=== PATIENT | female | born 1965 | race Caucasian/White ===

== ENCOUNTER 2024-03-08 13:23 | Outpatient (CLI) | payer BC ==
[~2024-03-08 13:23] MED LIST: BENZ-38 PO; CYCL-1 PO; GADOTERATE MEGLUMINE 7.5 MMOL/15 ML VIAL IV ONE; IBUP-1984 PO; LEVO100C4 PO; SIMV-42 PO
[2024-03-09] MEDS ORDERED: GADOTERATE MEGLUMINE 7.5 MMOL/15 ML VIAL IV ONE (08:38)
== END 2024-03-08 23:59 | disposition home or self-care (01) ==
LOC: MRI 13:23 → MERGE 13:23 → MRI 23:59
PROVIDERS: ATTEND Nurse Practitioner Family
DX: H93.13 Tinnitus, bilateral (principal); H91.8X3 Other specified hearing loss, bilateral
CPT/HCPCS: 70553; A9575

== ENCOUNTER → 2024-03-26 | Outpatient (CLI) | payer BC ==
[~2024-03-26] MED LIST changes: -BENZ-38 PO; -GADOTERATE MEGLUMINE 7.5 MMOL/15 ML VIAL IV ONE; -IBUP-1984 PO
== END | disposition home or self-care (01) ==
LOC: RAD 12:47
PROVIDERS: ATTEND Nurse Practitioner Family
DX: J32.8 Other chronic sinusitis (principal); J34.2 Deviated nasal septum; H93.13 Tinnitus, bilateral; H91.90 Unspecified hearing loss, unspecified ear; H91.8X3 Other specified hearing loss, bilateral
CPT/HCPCS: 70486

== ENCOUNTER 2024-09-02 03:41 | Outpatient (CLI) | payer BC ==
[~2024-09-02 03:41] MED LIST changes: -LEVO100C4 PO; +LEVO100C5 PO
[2024-09-04 08:12] LABS: THIIODOTHRONINE, FREE, SERUM 2.7 pg/mL (2.0-4.4); THYROXINE (T4) 8.3 ug/dL (4.5-12.0)
== END 2024-09-02 23:59 | disposition home or self-care (01) ==
LOC: LAB 03:41
DX: E03.9 Hypothyroidism, unspecified (principal)
CPT/HCPCS: 36415; 82306; 84436; 84443; 84481

== ENCOUNTER 2024-12-14 09:01 | Outpatient (CLI) | payer BC ==
[2024-12-14 09:22] LABS: MEAN PLATELET VOLUME 8.6 FL (7.4-10.4); RED CELL DISTRIBUTION WIDTH 13.6 % (11.5-14.5)
[2024-12-14 09:39] LABS: CHOL/HDL RATIO 3.3 (0.00-4.99); CREATININE 0.71 MG/DL (0.40-0.90); LDL CHOLESTEROL 92 MG/DL (50-100); TOTAL CARBON DIOXIDE 29.5 MMOL/L (24-32); eGFR 84 ML/MIN
== END 2024-12-14 23:59 | disposition home or self-care (01) ==
LOC: RAD 09:01
PROVIDERS: ATTEND Internal Medicine Interventional Cardiology
DX: E78.5 Hyperlipidemia, unspecified (principal); R53.83 Other fatigue; R00.2 Palpitations
CPT/HCPCS: 36415; 80053; 80061; 83695; 83735; 85025

== ENCOUNTER 2025-01-07 07:55 | Outpatient (CLI) | payer BC ==
--- NOTE | 2025-01-07 09:14 | VASCULAR REPORT ---
CLINICAL HISTORY: Dizziness. TECHNIQUE: Ricketts-scale, Color and Duplex Doppler imaging of the bilateral carotid systems was performed. COMPARISON: MR MRI HEAD on DOS: 03/08/24, ULTRASOUND HEAD NECK on DOS: 05/10/19 Findings: Right Carotid system: There is mild intimal thickening present in the right carotid system. Left Carotid system: There is mild intimal thickening present in the left carotid system. The following flow velocities were obtained (cm/sec). Right Carotid System: ICA PSV: 73 cm/sec ICA PDV: 34 cm/sec ICA/CCA Ratio: 0 Left Carotid System: ICA PSV: 88 cm/sec ICA PDV: 33 cm/sec ICA/CCA Ratio: 0.9 The right and left common carotid and external carotid arteries are patent. There is antegrade flow in both vertebral arteries and external carotid arteries. IMPRESSION: LESS THAN 50% RIGHT ICA NARROWING. LESS THAN 50% LEFT ICA NARROWING. Estimation of carotid stenosis is based on velocity parameters that correlate the residual internal carotid diameter with that of the more distal vessel in accordance with the [place] Symptomatic Carotid Endarterectomy Trial (NASCET).
--- NOTE | 2025-01-07 19:04 | CARDIOLOGY REPORT ---
APPROVED REPORT EXAM: Comprehensive 2D, Doppler, and color-flow Echocardiogram. Patient Location: OUTPATIENT Blood Pressure: 121/77 mmHg Heart Rate: 50's bpm Rhythm: SINUS BRADYCARDIA Indications ARRHYTHMIA Procedural Nurse: Roney Duke MD Previous echo: NONE 2D Dimensions RVDd 3.5 cm IVSd 0.8 (0.7-1.1cm) LVDd 4.5 cm PWd 0.8 (0.7-1.1cm) IVSs 1.1 (0.8-1.2cm) LVDs 2.9 (2.5-4.0cm) PWs 1.1 (0.8-1.2cm) LVOT Diameter 1.90 (1.8-2.4cm) LVEF(%) 63.4 (>50%) FS (%) 34.2 % SV 57.7 ml M-Mode Dimensions Left Atrium(MM) 4.10 (2.5-4.0cm) Aortic Root 2.34 (2.2-3.7cm) Aortic Valve AoV Peak Turner. 123.4 cm/s AoV VTI 27.2 cm AO Peak GR. 6.1 mmHg AO Mean GR. 3 mmHg LVOT VTI 27.64 cm LVOT Peak Turner. 107.6 cm/s HAANNE (VMAX) 2.48 cm2 HANANE (VTI) 2.89 cm2 Mitral Valve MV E Velocity 65.2 cm/s MV DECEL TIME 225 ms MV A Velocity 56.7 cm/s MV PHT 72 ms E/A Ratio 1.1 MVA (PHT) 3.07 cm2 Tricuspid Valve TR P. Velocity 233 cm/s RAP ESTIMATE 10 mmHg TR Peak Gr. 22 mmHg RVSP 32 mmHg LEFT VENTRICLE Normal LV size and wall thickness. Overall systolic function is normal. LVEF is 60-65%. RIGHT VENTRICLE RV is mildly dilated with normal function. Elevated right heart pressures with an RVSP of 32 mmHg. ATRIA Left atrium is mildly dilated. AORTIC VALVE Trileaflet AV appears normal without stenosis. No insufficiency. MITRAL VALVE Mild MV annular calcification without stenosis. Trace regurgitation. TRICUSPID VALVE TV appears structurally normal with trace regurgitation. PULMONIC VALVE Normal PV without stenosis, physiologic insufficiency. GREAT VESSELS The aortic root is normal in size. PERICARDIUM Normal pericardium. No effusion. Other Information Study Quality: Adequate Conclusion Normal LV size and wall thickness. Overall systolic function is normal. LVEF is 60-65%. RV is mildly dilated with normal function. Elevated right heart pressures with an RVSP of 32 mmHg. Left atrium is mildly dilated. Trileaflet AV appears normal without stenosis. No insufficiency. Mild MV annular calcification without stenosis. Trace regurgitation. TV appears structurally normal with trace regurgitation. Normal pericardium. No effusion.
== END 2025-01-07 23:59 | disposition home or self-care (01) ==
LOC: VAS 07:55
PROVIDERS: ATTEND Internal Medicine Interventional Cardiology
DX: I37.1 Nonrheumatic pulmonary valve insufficiency (principal); R53.83 Other fatigue; E03.9 Hypothyroidism, unspecified; R00.2 Palpitations; E78.5 Hyperlipidemia, unspecified
CPT/HCPCS: 36415; 84439; 84443; 84481; 93306; 93880

== ENCOUNTER 2025-01-17 12:51 | Emergency (ER) | payer BC ==
[~2025-01-17] VITALS: Ht 152.4 cm; Wt 66.5 kg
[2025-01-17 13:15] LABS: MEAN PLATELET VOLUME 8.8 FL (7.4-10.4); RED CELL DISTRIBUTION WIDTH 13.4 % (11.5-14.5)
[2025-01-17] MEDS: adenosine 3mg/ml 2ml vial IV ONE ×2 (13:15)
--- NOTE | 2025-01-17 13:21 | ELECTROCARDIOGRAPH REPORT ---
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 Elpidio Alvarez Measurements Intervals Felt Rate: 211 P: 269 [place]: 65 QRS: -48 QRSD: 90 T: 57 QT: 260 QTc: 488 Interpretive Statements Supraventricular tachycardia Left axis deviation ST depression, probably rate related Artifact in lead(s) I,II,aVR,aVL,aVF,V1 and baseline wander in lead(s) I,II,aVR,aVL,aVF,V2,V4 Electronically Signed On 01-18-2025 7:40:[address] Elpidio Alvarez Please click the below link to view image of tracing.
[2025-01-17 13:36] LABS: CREATININE 0.89 MG/DL (0.40-0.90); TOTAL CARBON DIOXIDE 28.4 MMOL/L (24-32); eCRCL 49 ML/MIN; eGFR 65 ML/MIN
--- NOTE | 2025-01-17 13:47 | Physician Documentation ---
History of Present Illness ~ Chief Complaint: Rapid Heartbeat Stated Complaint: HIGH HEART RATE Time Seen by MD: 13:02 Primary Medical Doctor: ashleyk Mode of Arrival: POV, Ambulatory HPI 59 year old female was at home today and reports lakhwinder acute onset of palpitations and a racing heart. This happened about one month ago and she is unsure of the diagnosis. She is followed by Dr. Duke. At the time, carotid massage and valsalva maneuver stopped the episode. She denies chest pain, fevers, N/V/D. Medication Reconciliation Allergies: Coded Allergies: No Known Allergies (Unverified , 01/17/25) Scheduled Levothyroxine Sodium (Levothyroxine), PO DAILY, (Reported) Simvastatin* (Zocor*), 1 TAB PO HS, (Reported) Scheduled PRN Cyclobenzaprine* (Cyclobenzaprine*), 1 TAB PO Q8H PRN for pain Review of Systems All Other Systems at this time: Reviewed and Negative Physical Exam Vital Signs: RN Vital Signs have been reviewed: Yes, Temperature: 97.8, Source: Oral, Heart Rate: 76, Respiratory Rate: 17, BP: 122/81, Pulse Oximetry: 96, Weight: 66.500 Oxygen Flow Rate: 0 Physical Exam HEENT: PERRL, moist oral mucosa, EOMI Pulmonary: No respiratory distress Cardiac: regular tachycardia, no murmur, rub or gallop MSK: no deformity Skin: w/d/i, no rash Neuro: alert, nonfocal Psych: normal affect Progress Results/Orders Results/Orders Orders - JOVANNA ARAIZA MD Urinalysis, Cult If Indicated (01/17/25 13:03) Electrocardiogram (01/17/25 13:15) Completed Orders - JOVANNA ARAIZA MD Cbc/Diff (01/17/25 13:03) CMP (01/17/25 13:03) Adenosine Inj. (Adenocard Inj.) (01/17/25 13:05) Electrocardiogram (01/17/25 12:56) Medications Received in ER Medications (Trade) Dose Ordered Sig/Mark Route PRN Reason Start Time Stop Time Status Last Admin Dose Admin (Adenocard inj.) 12 mg ONCE ONCE IV 01/17/25 13:05 01/17/25 13:06 DC 01/17/25 13:15 12 MG Vital Signs 01/17/25 01/17/25 01/17/25 01/17/25 13:00 13:20 13:23 13:26 Temp 97.7 97.8 97.8 Pulse 184 74 76 Resp 18 18 15 17 B/P (MAP) 131/104 125/85 (98) 122/81 (95) Pulse Ox 99 96 96 O2 Flow Rate 0 0 0 Laboratory Tests Test 01/17/25 12:58 White Blood Count 6.5 Red Blood Count 4.94 Hemoglobin 15.2 Hematocrit 45.9 H Mean Corpuscular Volume 93.0 Mean Corpuscular Hemoglobin 30.9 Mean Corpuscular Hemoglobin Concent 33.2 Red Cell Distribution Width 13.4 Platelet Count 246 Mean Platelet Volume 8.8 Neutrophils (%) (Auto) 44.9 Lymphocytes (%) (Auto) 44.1 Monocytes (%) (Auto) 9.1 Eosinophils (%) (Auto) 1.4 Basophils (%) (Auto) 0.5 Neutrophils # (Auto) 2.9 Lymphocytes # (Auto) 2.9 Monocytes # (Auto) 0.6 Eosinophils # (Auto) 0.1 Basophils # (Auto) 0.0 CBC Comment Sodium Level 141 Potassium Level 3.9 Chloride Level 104 Carbon Dioxide Level 28.4 Anion Gap 9 Blood Urea Nitrogen 18 Creatinine 0.89 Estimated GFR/1.73 m2 65 BUN/Creatinine Ratio 20.2 H Glucose Level 116 H Calcium Level 8.8 Total Bilirubin 0.6 Aspartate Amino Transf (AST/SGOT) 24 Alanine Aminotransferase (ALT/SGPT) 52 Alkaline Phosphatase 79 Total Protein 7.9 Albumin 4.2 Globulin 3.7 Albumin/Globulin Ratio 1.1 Chemistry Comments Medical Decision Making Additional information obtaine: N/A Findings 59 year old female with apparent pSVT. EKG interpreted by me demonstrated a tachycardia with a rate of 211/min, no STEMI criteria, and no other dysrhythmia noted. Chemically cardioverted with adenosine 12mg resulting in resolution of symptoms and normal sinus rhythm rate in the 70's on reevaluation. Return precautions discussed, patient understands that she needs to follow up with Dr. Duke and have an electrophysiological study performed. Return precautions. Differential Dx:Considerations: Include: angina / CT, atrial fibrillation, atrial flutter, MAT, PACs, PSVT, sinus tachycardia, WPW, torsades de pointes, ventricular fibrillation, ventricular tachycardia Differential Dx:Considerations: Include anxiety/panic attack, Include electrolyte disorder, Include hyperthyroidism Departure Disposition: 01 HOME / SELF CARE / HOMELESS Impression: Primary Impression: PSVT (paroxysmal supraventricular tachycardia) Condition: Stable Discharge Instructions: Supraventricular Tachycardia, Adult Referrals: NO PRIMARY CARE PROVIDER (PCP) Education Educated: Patient, Family Educated regarding: diagnosis, treatment, prognosis, need for follow up Signature Scribe Signature: . Attestation: . JOVANNA ARAIZA MD Jan 17, 2025 13:47
[2025-01-17 14:39] VITALS: BP 122/81; PULSE 76; RESP 16; TEMP 98; O2SAT 98
--- NOTE | 2025-01-17 15:31 | ELECTROCARDIOGRAPH REPORT ---
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 Elpidio Alvarez Measurements Intervals George Rate: 70 P: 64 DE: 159 QRS: 20 QRSD: 91 T: 41 QT: 372 QTc: 402 Interpretive Statements Sinus rhythm Low voltage, precordial leads Electronically Signed On 01-18-2025 7:40:[address] Elpidio Alvarez Please click the below link to view image of tracing.
== END 2025-01-17 14:40 | disposition home or self-care (01) ==
LOC: ER 12:52
DX: I47.10 Supraventricular tachycardia, unspecified (principal)
CPT/HCPCS: 36415; 80053; 85025; 93005; 96374; 99284; J0153